=== PATIENT | female | born 1985 | race Two or more races ===

== ENCOUNTER 2018-01-17 10:29 | Outpatient (CLI) | payer MEDICAID ==
--- NOTE | 2018-01-17 13:29 | Non Stress Test Report ---
Non Stress Test Datetime Report Generated by CPN: 01/17/2018 13:28 DEMOGRAPHIC EGA NST: 40.0 INDICATION Indication for Study: Other VITAL SIGNS Temperature - NST: 98.2 Pulse - NST: 84 RESP - NST: 18 NBPSYS NST: 111 NBPDIA NST: 86 MONITORING Monitor Explained: Monitor Explained; Test Explained; Patient Verbalized Understanding Time on Monitor: 01/17/2018 10:46 Time off Monitor: 01/17/2018 12:40 NST Duration: 114 NST INTERVENTIONS NST Interventions: PO Hydration; Reposition Patient Physician Notified NST: C Almodovar CNM BABY A: [id number] BABY A Movement : Present Movement : Present Contraction Frequency : irregular FHR Baseline : 140 Accelerations : 15X15 Accelerations : 15X15 Decelerations : None Variability : Moderate 6-25bpm Variability : Moderate 6-25bpm NST Review: Meets Criteria for Reactive NST NST Review: Meets Criteria for Reactive NST NST Review and Verified By : DANYA Funes Results: Reactive NST REPORT Report Trigger: Send Report
== END 2018-01-17 12:58 | disposition home or self-care (01) ==
LOC: LC 10:29
PROVIDERS: ATTEND Obstetrics & Gynecology
PROC: 4A1HXCZ Monitoring of Products of Conception, Cardiac Rate, External Approach (ICD-10-PCS; principal; 2018-01-17)
DX: Z34.93 Encounter for supervision of normal pregnancy, unspecified, third trimester (principal)
CPT/HCPCS: 59025